=== PATIENT | male | born 1945 | race Hispanic/Latino ===

== ENCOUNTER 2022-03-13 09:02 | Emergency (ER) | payer OTHER ==
[~2022-03-13] VITALS: Ht 170.2 cm; Wt 108.9 kg
[2022-03-13] MEDS ORDERED: SODIUM CHLORIDE 0.9% 1000ML 1,000 ML IV STA (09:27)
[2022-03-13] MEDS ORDERED: ONDANSETRON HCL INJ 2MG/ML 2ML 2 MG/ML VIAL IV ONE (09:30)
[2022-03-13] MEDS ORDERED: FAMOTIDINE 20 MG/2 ML VIAL IV ONE (09:30)
[2022-03-13] MEDS ORDERED: CEFTRIAXONE 1 GM VIAL IV ONE (09:45)
[2022-03-13] MEDS ORDERED: CEFTRIAXONE 1 GM VIAL ONE (09:55)
[2022-03-13] MEDS ORDERED: SODIUM CHLORIDE 0.9% 1000ML 1,000 ML ONE (09:56)
[2022-03-13] MEDS ORDERED: CEFDINIR300 MG PO (10:20)
[2022-03-13] MEDS ORDERED: ONDANSETRON ODT4 MG PO (10:20)
[2022-03-13] MEDS ORDERED: ACETAMINOPHEN500 MG PO (10:20)
[2022-03-13] MEDS ORDERED: PROBIOTIC & AC1 EACH PO (10:20)
== END 2022-03-13 10:47 | disposition home or self-care (01) ==
LOC: FSED 09:23
DX: R11.2 Nausea with vomiting, unspecified (principal); N41.9 Inflammatory disease of prostate, unspecified; N39.0 Urinary tract infection, site not specified
CPT/HCPCS: 74176; 80048; 80076; 81003; 85025; 96374; 96376; 99284; J0696; J2405; J7030

== ENCOUNTER 2022-10-19 12:35 | Emergency (ER) | payer OTHER ==
[~2022-10-19] VITALS: Ht 172.7 cm; Wt 88.6 kg
[~2022-10-19 12:35] MED LIST: ACETAMINOPHEN500 MG PO; CEFDINIR300 MG PO; ONDANSETRON ODT4 MG PO; PROBIOTIC & AC1 EACH PO
[2022-10-19] MEDS ORDERED: ACETAMINOPHEN 325 MG TAB PO ONE (13:30)
[2022-10-19] MEDS ORDERED: HYDROCODON-ACE1 EA12 PO (15:18)
[2022-10-19] MEDS ORDERED: HYDROCODONE/APAP 5MG-325MG TAB PO ONE (15:30)
== END 2022-10-19 15:28 | disposition home or self-care (01) ==
LOC: FSED 12:39
DX: S42.492A Other displaced fracture of lower end of left humerus, initial encounter for closed fracture (principal); M25.422 Effusion, left elbow; W11.XXXA Fall on and from ladder, initial encounter; Y93.H2 Activity, gardening and landscaping; Y92.89 Other specified places as the place of occurrence of the external cause
CPT/HCPCS: 99284